=== PATIENT | male | born 1960 ===

== ENCOUNTER 2021-05-07 09:55 | Inpatient (IN) | payer MEDICARE, MEDICAID ==
[~2021-05-07] VITALS: Ht 170.2 cm; Wt 118.0 kg
[~2021-05-07 09:55] MED LIST: AMLO-211 PO; ASORBIC ACID PO; ASPIRIN; ATOR-2 PO; CARV6.2512 PO; CLOP75TA PO; FENO145T32 PO; FERR324T9 PO; FOLI0.4T5 PO; FOLI0.8T22 PO; GABA300C PO; GABA600T7 PO; INSU100I13 SQ-INSULIN; INSU100V11 SQ; INSU100V8 SQ; METO200T47 PO; MULTVITAMIN PO; OMEGA; PIOG30TA23 PO; QUET50TA3 PO; RANITIDINE PO; SERT100T32 PO; SEVE800T7 PO; SEVE800T8 PO; VICTOZA SC
--- NOTE | 2021-05-07 10:21 | NUR ---
Transfer from [facility] for continued eval of nstemi/pna/need for hd today (m/w/f) Chest pain with radiation to left arm/left leg. Started at rest last night at 2300 pna treated with rocephin/azithromycin On arrival reports left lef numb/weak since 2300. with eval left leg numb and moderately weak-erp to bedside- to order Ct head Placed on conveyor monitor/ecg obtained
--- NOTE | 2021-05-07 10:28 | NUR ---
to ct scan
--- NOTE | 2021-05-07 10:40 | NUR ---
lab at bedside
--- NOTE | 2021-05-07 10:58 | NUR ---
left arm still slightly numb, left leg now with full strength/no numbness-erp made aware
[2021-05-07 11:03] LABS: BASOPHILS % (AUTO) 1 % (0-1); EOSINOPHILS % (AUTO) 5 % (1-7); LYMPHOCYTES % (AUTO) 24 % (22-44); MEAN CORPUSCULAR HEMOGLOBIN 30.6 pg (27.5-34.5); MEAN CORPUSCULAR HGB CONC 33.2 g/dL (33.2-36.2); MEAN PLATELET VOLUME 9.1 fL (7.4-10.4); MONOCYTES % (AUTO) 8 % (2-9); NEUTROPHILS % (AUTO) 62 % (42-75); PLATELET COUNT 220 x10^3/uL (130-400); RED BLOOD COUNT 3.63 x10^6/uL (4.38-5.82); RED CELL DISTRIBUTION WIDTH 16.5 % (9.4-14.8)
--- NOTE | 2021-05-07 11:05 | NUR ---
Troponin at [facility] 0.67 with recheck increased to 0.68. Was given 324mg of asa at 2200 05/06/21 Patient was given 2gm of rocephin (0111am today) and 500mg of azithromycin (0137am today) with NO prior blood cultures
[2021-05-07 11:09] LABS: ALBUMIN 3.2 g/dL (3.4-5.0); ANION GAP 11 mmol/L (5-15); CHLORIDE 98 mmol/L (98-107); CREATININE 7.32 mg/dL (0.7-1.3)
[2021-05-07 11:14] LABS: TROPONIN I 0.589 ng/mL (0.000-0.045)
[2021-05-07] MEDS ORDERED: ranitidine PO (11:15)
--- NOTE | 2021-05-07 11:16 | NUR ---
lab called to convey troponin of 0.589. ERP made aware. ERP considering orders ERP asked for asa (last dose yesterday)
[2021-05-07] MEDS ORDERED: INSU100V8 SQ (11:23)
[2021-05-07] MEDS ORDERED: ASPIRIN 81 MG TABLET CHEW ONE (11:27)
[2021-05-07] MEDS ORDERED: ASPIRIN 81 MG TABLET CHEW PO ONE (11:30)
[2021-05-07] MEDS ORDERED: ATOR-2 PO (12:06)
[2021-05-07] MEDS ORDERED: CALC667C PO (12:06)
[2021-05-07] MEDS ORDERED: ASPI-963 PO (12:06)
[2021-05-07] MEDS ORDERED: FURO-93 PO (12:06)
[2021-05-07] MEDS ORDERED: QUET50TA5 PO (12:06)
[2021-05-07] MEDS ORDERED: CHOL10003 PO (12:07)
--- NOTE | 2021-05-07 12:48 | NUR ---
with reassessment patient without worsenig neurological symptoms nor cardic/resp symptoms updated on estimated poc (admit) Food ordered/hospital bed ordered
--- NOTE | 2021-05-07 12:52 | NUR ---
REPORT FROM PER, ASSUME CARE OF PT AT THIS TIME.
--- NOTE | 2021-05-07 13:04 | NUR ---
report to monico de jesus
--- NOTE | 2021-05-07 13:11 | NUR ---
[facility] IN ASSESSING PT. ED DIET TRAY PROVIDED.
[2021-05-07] MEDS ORDERED: ONDANSETRON ODT 4 MG PO PRN (13:30)
[2021-05-07] MEDS ORDERED: morphine SULFATE 10 MG/ML, 1ML IVPush PRN (13:30)
[2021-05-07] MEDS ORDERED: NITROGLYCERIN 0.4 MG BOTTLE (25 TABS) SL PRN (13:30)
[2021-05-07] MEDS ORDERED: ONDANSETRON 2MG/ML, 2ML IVPush PRN (13:30)
[2021-05-07] MEDS ORDERED: ACETAMINOPHEN 325 MG TABLET PO PRN (13:30)
[2021-05-07 14:02] LABS: CALCIUM 9.5 mg/dL (8.5-10.1)
--- NOTE | 2021-05-07 14:39 | NUR ---
REPORT TO FRANTZ SON READY FOR TRANSPORT AT THIS TIME.
[2021-05-07] MEDS: GABAPENTIN 300 MG CAPSULE PO SCH ×2 (16:15→19:51)
[2021-05-07] MEDS: CALCIUM ACETATE 667 MG CAPSULE PO SCH ×2 (16:15→19:51)
[2021-05-07] MEDS: LACTOBACILLUS CHEW TABLET PO SCH ×2 (16:16→19:51)
[2021-05-07] MEDS: HEPARIN 5,000 UNITS/ML, 1ML SQ SCH (16:16)
[2021-05-07] MEDS: INSULIN GLARGINE 100 UNITS/ML, PEN SQ-INSULIN SCH (16:16)
[2021-05-07] MEDS: FERROUS SULFATE 325 MG TABLET PO SCH (16:16)
[2021-05-07] MEDS: SEVELAMER CARBONATE 800MG TAB PO SCH (17:12)
[2021-05-07] MEDS: INSULIN LISPRO 100 UNITS/ML, PEN SQ-INSULIN SCH ×2 (17:13→20:04)
[2021-05-07] MEDS: CARVEDILOL 12.5 MG TABLET PO SCH (17:13)
[2021-05-07 18:45] VITALS: BP 159/85
[2021-05-07 19:46] VITALS: BP 155/87
[2021-05-07] MEDS: ATORVASTATIN 20 MG TABLET PO SCH (19:50)
[2021-05-07] MEDS: FAMOTIDINE 20 MG TABLET PO SCH (19:51)
[2021-05-07] MEDS: QUETIAPINE 25MG TABLET PO SCH (19:51)
[2021-05-08 03:50] VITALS: BP 164/94
[2021-05-08] MEDS: HEPARIN 5,000 UNITS/ML, 1ML SQ SCH ×3 (04:21→15:28)
[2021-05-08 04:53] LABS: BASOPHILS % (AUTO) 1 % (0-1); EOSINOPHILS % (AUTO) 5 % (1-7); LYMPHOCYTES % (AUTO) 22 % (22-44); MEAN CORPUSCULAR HEMOGLOBIN 31.1 pg (27.5-34.5); MEAN CORPUSCULAR HGB CONC 33.8 g/dL (33.2-36.2); MEAN PLATELET VOLUME 8.9 fL (7.4-10.4); MONOCYTES % (AUTO) 9 % (2-9); NEUTROPHILS % (AUTO) 63 % (42-75); PLATELET COUNT 213 x10^3/uL (130-400); RED BLOOD COUNT 3.39 x10^6/uL (4.38-5.82); RED CELL DISTRIBUTION WIDTH 16.6 % (9.4-14.8)
[2021-05-08 05:04] LABS: CHLORIDE 101 mmol/L (98-107)
[2021-05-08 05:09] LABS: ANION GAP 7 mmol/L (5-15); CALCIUM 8.7 mg/dL (8.5-10.1); CREATININE 4.94 mg/dL (0.7-1.3)
[2021-05-08 05:30] VITALS: BP 151/89
[2021-05-08] MEDS: CARVEDILOL 12.5 MG TABLET PO SCH ×2 (05:32→17:03)
[2021-05-08 07:04] VITALS: BP 117/61
[2021-05-08] MEDS: INSULIN LISPRO 100 UNITS/ML, PEN SQ-INSULIN SCH ×4 (07:28→21:23)
[2021-05-08] MEDS: FAMOTIDINE 20 MG TABLET PO SCH ×2 (07:49→21:22)
[2021-05-08] MEDS: MULTIVITAMIN 1 TABLET PO SCH (07:49)
[2021-05-08] MEDS: ASPIRIN 81 MG TABLET EC PO SCH (07:49)
[2021-05-08] MEDS: FUROSEMIDE 20 MG TABLET PO SCH (07:49)
[2021-05-08] MEDS: FENOFIBRATE 145 MG TABLET PO SCH (07:49)
[2021-05-08] MEDS: FOLIC ACID 1 MG TABLET PO SCH (07:49)
[2021-05-08] MEDS: ASCORBIC ACID 500 MG TABLET PO SCH (07:49)
[2021-05-08] MEDS: SEVELAMER CARBONATE 800MG TAB PO SCH ×3 (07:49→15:28)
[2021-05-08] MEDS: CLOPIDOGREL 75 MG TABLET PO SCH (07:49)
[2021-05-08] MEDS: GABAPENTIN 300 MG CAPSULE PO SCH ×3 (07:50→21:22)
[2021-05-08] MEDS: CHOLECALCIFEROL 5,000u TAB PO SCH (07:50)
[2021-05-08] MEDS: LACTOBACILLUS CHEW TABLET PO SCH ×3 (07:50→21:22)
[2021-05-08] MEDS: SERTRALINE 100MG TABLET PO SCH (07:50)
[2021-05-08] MEDS: CALCIUM ACETATE 667 MG CAPSULE PO SCH ×3 (07:50→21:22)
[2021-05-08] MEDS: INSULIN GLARGINE 100 UNITS/ML, PEN SQ-INSULIN SCH (07:55)
[2021-05-08 13:47] VITALS: BP 141/81
[2021-05-08 17:01] LABS: TROPONIN I 0.552 ng/mL (0.000-0.045)
[2021-05-08 17:02] VITALS: BP 131/77
[2021-05-08 21:09] VITALS: BP 137/77
[2021-05-08] MEDS: QUETIAPINE 25MG TABLET PO SCH (21:22)
[2021-05-08] MEDS: ATORVASTATIN 20 MG TABLET PO SCH (21:22)
[2021-05-09] MEDS: HEPARIN 5,000 UNITS/ML, 1ML SQ SCH ×3 (00:06→15:25)
[2021-05-09 00:11] VITALS: BP 114/71
[2021-05-09 04:52] LABS: BASOPHILS % (AUTO) 1 % (0-1); EOSINOPHILS % (AUTO) 6 % (1-7); LYMPHOCYTES % (AUTO) 29 % (22-44); MEAN CORPUSCULAR HEMOGLOBIN 31.2 pg (27.5-34.5); MEAN CORPUSCULAR HGB CONC 33.6 g/dL (33.2-36.2); MEAN PLATELET VOLUME 9.3 fL (7.4-10.4); MONOCYTES % (AUTO) 10 % (2-9); NEUTROPHILS % (AUTO) 55 % (42-75); PLATELET COUNT 206 x10^3/uL (130-400); RED BLOOD COUNT 3.26 x10^6/uL (4.38-5.82); RED CELL DISTRIBUTION WIDTH 16.9 % (9.4-14.8)
[2021-05-09 05:05] LABS: ANION GAP 8 mmol/L (5-15); CALCIUM 8.4 mg/dL (8.5-10.1); CHLORIDE 97 mmol/L (98-107)
[2021-05-09 05:06] LABS: CREATININE 6.61 mg/dL (0.7-1.3)
[2021-05-09] MEDS: CARVEDILOL 12.5 MG TABLET PO SCH ×2 (05:33→21:29)
[2021-05-09 06:49] VITALS: BP 111/66
[2021-05-09] MEDS: INSULIN LISPRO 100 UNITS/ML, PEN SQ-INSULIN SCH ×4 (07:04→21:00)
[2021-05-09] MEDS: FENOFIBRATE 145 MG TABLET PO SCH (07:44)
[2021-05-09] MEDS: FOLIC ACID 1 MG TABLET PO SCH (07:44)
[2021-05-09] MEDS: CALCIUM ACETATE 667 MG CAPSULE PO SCH ×3 (07:44→21:28)
[2021-05-09] MEDS: ASPIRIN 81 MG TABLET EC PO SCH (07:44)
[2021-05-09] MEDS: ASCORBIC ACID 500 MG TABLET PO SCH (07:44)
[2021-05-09] MEDS: LACTOBACILLUS CHEW TABLET PO SCH ×3 (07:44→21:26)
[2021-05-09] MEDS: SERTRALINE 100MG TABLET PO SCH (07:44)
[2021-05-09] MEDS: GABAPENTIN 300 MG CAPSULE PO SCH ×3 (07:45→21:29)
[2021-05-09] MEDS: SEVELAMER CARBONATE 800MG TAB PO SCH ×3 (07:45→16:05)
[2021-05-09] MEDS: CHOLECALCIFEROL 5,000u TAB PO SCH (07:45)
[2021-05-09] MEDS: FAMOTIDINE 20 MG TABLET PO SCH (07:45)
[2021-05-09] MEDS: MULTIVITAMIN 1 TABLET PO SCH (07:45)
[2021-05-09] MEDS: FUROSEMIDE 20 MG TABLET PO SCH (07:45)
[2021-05-09] MEDS: CLOPIDOGREL 75 MG TABLET PO SCH (07:45)
[2021-05-09] MEDS: INSULIN GLARGINE 100 UNITS/ML, PEN SQ-INSULIN SCH (07:46)
[2021-05-09 12:21] VITALS: BP 126/76
[2021-05-09] MEDS: FERROUS SULFATE 325 MG TABLET PO SCH (15:16)
[2021-05-09 19:45] VITALS: BP 145/79
[2021-05-09] MEDS: ATORVASTATIN 20 MG TABLET PO SCH (21:26)
[2021-05-09] MEDS: QUETIAPINE 25MG TABLET PO SCH (21:28)
[2021-05-10] MEDS: HEPARIN 5,000 UNITS/ML, 1ML SQ SCH ×4 (00:25→23:47)
[2021-05-10 00:31] VITALS: BP 137/79
[2021-05-10 05:11] VITALS: BP 122/72
[2021-05-10] MEDS: CARVEDILOL 12.5 MG TABLET PO SCH ×2 (05:12→18:11)
[2021-05-10 05:22] LABS: BASOPHILS % (AUTO) 1 % (0-1); EOSINOPHILS % (AUTO) 6 % (1-7); LYMPHOCYTES % (AUTO) 28 % (22-44); MEAN CORPUSCULAR HEMOGLOBIN 31.4 pg (27.5-34.5); MEAN PLATELET VOLUME 9.4 fL (7.4-10.4); MONOCYTES % (AUTO) 9 % (2-9); NEUTROPHILS % (AUTO) 56 % (42-75); PLATELET COUNT 188 x10^3/uL (130-400); RED BLOOD COUNT 3.19 x10^6/uL (4.38-5.82); RED CELL DISTRIBUTION WIDTH 16.9 % (9.4-14.8)
[2021-05-10 05:30] LABS: CALCIUM 8.2 mg/dL (8.5-10.1); CHLORIDE 97 mmol/L (98-107)
[2021-05-10 05:31] LABS: ANION GAP 8 mmol/L (5-15); CREATININE 5.75 mg/dL (0.7-1.3)
[2021-05-10 07:40] VITALS: BP 124/75
[2021-05-10] MEDS ORDERED: REGADENOSON 0.4 MG/5 ML SYRINGE ONE (07:54)
[2021-05-10] MEDS: INSULIN LISPRO 100 UNITS/ML, PEN SQ-INSULIN SCH ×4 (08:31→20:33)
[2021-05-10] MEDS: GABAPENTIN 300 MG CAPSULE PO SCH ×3 (08:32→20:24)
[2021-05-10] MEDS: FENOFIBRATE 145 MG TABLET PO SCH (08:32)
[2021-05-10] MEDS: SERTRALINE 100MG TABLET PO SCH (08:32)
[2021-05-10] MEDS: CALCIUM ACETATE 667 MG CAPSULE PO SCH ×3 (08:32→20:24)
[2021-05-10] MEDS: ASCORBIC ACID 500 MG TABLET PO SCH (08:32)
[2021-05-10] MEDS: CHOLECALCIFEROL 5,000u TAB PO SCH (08:32)
[2021-05-10] MEDS: CLOPIDOGREL 75 MG TABLET PO SCH (08:32)
[2021-05-10] MEDS: FAMOTIDINE 20 MG TABLET PO SCH (08:32)
[2021-05-10] MEDS: SEVELAMER CARBONATE 800MG TAB PO SCH ×3 (08:33→18:10)
[2021-05-10] MEDS: FOLIC ACID 1 MG TABLET PO SCH (08:33)
[2021-05-10] MEDS: LACTOBACILLUS CHEW TABLET PO SCH ×3 (08:33→20:24)
[2021-05-10] MEDS: FUROSEMIDE 20 MG TABLET PO SCH (08:33)
[2021-05-10] MEDS: MULTIVITAMIN 1 TABLET PO SCH (08:33)
[2021-05-10] MEDS: ASPIRIN 81 MG TABLET EC PO SCH (08:33)
[2021-05-10] MEDS: INSULIN GLARGINE 100 UNITS/ML, PEN SQ-INSULIN SCH (08:42)
[2021-05-10 12:58] VITALS: BP 143/80
[2021-05-10 19:13] VITALS: BP 151/84
[2021-05-10] MEDS: QUETIAPINE 25MG TABLET PO SCH (20:24)
[2021-05-10] MEDS: ATORVASTATIN 20 MG TABLET PO SCH (20:24)
[2021-05-11 01:15] VITALS: BP 157/80
[2021-05-11 05:17] LABS: ALBUMIN 3.2 g/dL (3.4-5.0); ANION GAP 8 mmol/L (5-15); CALCIUM 8.4 mg/dL (8.5-10.1); CHLORIDE 96 mmol/L (98-107)
[2021-05-11 05:18] LABS: BASOPHILS % (AUTO) 1 % (0-1); EOSINOPHILS % (AUTO) 5 % (1-7); LYMPHOCYTES % (AUTO) 26 % (22-44); MEAN CORPUSCULAR HEMOGLOBIN 31.4 pg (27.5-34.5); MEAN CORPUSCULAR HGB CONC 33.6 g/dL (33.2-36.2); MEAN PLATELET VOLUME 9.6 fL (7.4-10.4); MONOCYTES % (AUTO) 9 % (2-9); NEUTROPHILS % (AUTO) 59 % (42-75); PLATELET COUNT 197 x10^3/uL (130-400); RED BLOOD COUNT 3.23 x10^6/uL (4.38-5.82); RED CELL DISTRIBUTION WIDTH 16.6 % (9.4-14.8)
[2021-05-11] MEDS: CARVEDILOL 12.5 MG TABLET PO SCH ×2 (05:20→17:44)
[2021-05-11 05:21] LABS: ALANINE AMINOTRANSFERASE 18 U/L (12-78); ALKALINE PHOSPHATASE 111 U/L (45-117); BILIRUBIN,TOTAL 0.3 mg/dL (0.2-1.0); CREATININE 7.37 mg/dL (0.7-1.3); TOTAL PROTEIN 7.2 g/dL (6.4-8.2)
[2021-05-11 06:59] VITALS: BP 128/73
[2021-05-11] MEDS: GABAPENTIN 300 MG CAPSULE PO SCH ×3 (09:41→20:10)
[2021-05-11] MEDS: CLOPIDOGREL 75 MG TABLET PO SCH (09:41)
[2021-05-11] MEDS: CHOLECALCIFEROL 5,000u TAB PO SCH (09:41)
[2021-05-11] MEDS: ASCORBIC ACID 500 MG TABLET PO SCH (09:41)
[2021-05-11] MEDS: ASPIRIN 81 MG TABLET EC PO SCH (09:41)
[2021-05-11] MEDS: MULTIVITAMIN 1 TABLET PO SCH (09:41)
[2021-05-11] MEDS: CALCIUM ACETATE 667 MG CAPSULE PO SCH ×3 (09:41→20:10)
[2021-05-11] MEDS: FENOFIBRATE 145 MG TABLET PO SCH (09:41)
[2021-05-11] MEDS: SERTRALINE 100MG TABLET PO SCH (09:41)
[2021-05-11] MEDS: FUROSEMIDE 20 MG TABLET PO SCH (09:42)
[2021-05-11] MEDS: INSULIN LISPRO 100 UNITS/ML, PEN SQ-INSULIN SCH ×4 (09:42→20:21)
[2021-05-11] MEDS: FOLIC ACID 1 MG TABLET PO SCH (09:42)
[2021-05-11] MEDS: SEVELAMER CARBONATE 800MG TAB PO SCH ×3 (09:42→17:44)
[2021-05-11] MEDS: LACTOBACILLUS CHEW TABLET PO SCH ×3 (09:42→20:10)
[2021-05-11] MEDS: FAMOTIDINE 20 MG TABLET PO SCH (09:42)
[2021-05-11] MEDS: HEPARIN 5,000 UNITS/ML, 1ML SQ SCH ×3 (09:42→23:49)
[2021-05-11] MEDS: INSULIN GLARGINE 100 UNITS/ML, PEN SQ-INSULIN SCH (09:44)
[2021-05-11 13:50] VITALS: BP 147/88
[2021-05-11] MEDS: FERROUS SULFATE 325 MG TABLET PO SCH (17:46)
[2021-05-11 19:30] VITALS: BP 156/92
[2021-05-11] MEDS: QUETIAPINE 25MG TABLET PO SCH (20:10)
[2021-05-11] MEDS: ATORVASTATIN 20 MG TABLET PO SCH (20:10)
[2021-05-12 01:11] VITALS: BP 120/74
[2021-05-12 04:57] LABS: BASOPHILS % (AUTO) 1 % (0-1); EOSINOPHILS % (AUTO) 4 % (1-7); LYMPHOCYTES % (AUTO) 20 % (22-44); MEAN CORPUSCULAR HEMOGLOBIN 31.2 pg (27.5-34.5); MEAN CORPUSCULAR HGB CONC 33.4 g/dL (33.2-36.2); MEAN PLATELET VOLUME 9.7 fL (7.4-10.4); MONOCYTES % (AUTO) 8 % (2-9); NEUTROPHILS % (AUTO) 67 % (42-75); PLATELET COUNT 191 x10^3/uL (130-400); RED BLOOD COUNT 3.16 x10^6/uL (4.38-5.82); RED CELL DISTRIBUTION WIDTH 17.1 % (9.4-14.8)
[2021-05-12 05:11] LABS: CHLORIDE 95 mmol/L (98-107)
[2021-05-12 05:20] LABS: ALANINE AMINOTRANSFERASE 21 U/L (12-78); ALBUMIN 3.3 g/dL (3.4-5.0); ALKALINE PHOSPHATASE 97 U/L (45-117); ANION GAP 10 mmol/L (5-15); BILIRUBIN,TOTAL 0.3 mg/dL (0.2-1.0); CALCIUM 8.6 mg/dL (8.5-10.1); CREATININE 8.89 mg/dL (0.7-1.3); TOTAL PROTEIN 7.4 g/dL (6.4-8.2)
[2021-05-12] MEDS: CARVEDILOL 12.5 MG TABLET PO SCH ×2 (05:32→17:21)
[2021-05-12] MEDS: INSULIN LISPRO 100 UNITS/ML, PEN SQ-INSULIN SCH ×4 (07:00→21:00)
[2021-05-12 07:03] VITALS: BP 136/86
[2021-05-12] MEDS: SEVELAMER CARBONATE 800MG TAB PO SCH ×3 (08:00→17:21)
[2021-05-12] MEDS: MULTIVITAMIN 1 TABLET PO SCH (08:25)
[2021-05-12] MEDS: GABAPENTIN 300 MG CAPSULE PO SCH ×2 (08:25→16:50)
[2021-05-12] MEDS: FUROSEMIDE 20 MG TABLET PO SCH (08:25)
[2021-05-12] MEDS: CHOLECALCIFEROL 5,000u TAB PO SCH (08:25)
[2021-05-12] MEDS: ASPIRIN 81 MG TABLET EC PO SCH (08:25)
[2021-05-12] MEDS: FENOFIBRATE 145 MG TABLET PO SCH (08:25)
[2021-05-12] MEDS: FOLIC ACID 1 MG TABLET PO SCH (08:25)
[2021-05-12] MEDS: ASCORBIC ACID 500 MG TABLET PO SCH (08:25)
[2021-05-12] MEDS: SERTRALINE 100MG TABLET PO SCH (08:25)
[2021-05-12] MEDS: LACTOBACILLUS CHEW TABLET PO SCH ×2 (08:26→16:50)
[2021-05-12] MEDS: CALCIUM ACETATE 667 MG CAPSULE PO SCH ×2 (08:26→16:50)
[2021-05-12] MEDS: FAMOTIDINE 20 MG TABLET PO SCH (08:26)
[2021-05-12] MEDS: HEPARIN 5,000 UNITS/ML, 1ML SQ SCH ×2 (08:26→16:50)
[2021-05-12] MEDS: CLOPIDOGREL 75 MG TABLET PO SCH (08:26)
[2021-05-12] MEDS: INSULIN GLARGINE 100 UNITS/ML, PEN SQ-INSULIN SCH (08:28)
[2021-05-12] MEDS ORDERED: MIDAZOLAM 1 MG/ML, 2ML ONE (12:41)
[2021-05-12] MEDS ORDERED: FENTANYL PF 100 MCG/2ML ONE (12:41)
[2021-05-12] MEDS ORDERED: LIDOCAINE 1%, 20ML ONE (12:42)
[2021-05-12] MEDS ORDERED: BIVALIRUDIN 250 MG ONE (12:42)
[2021-05-12 14:04] VITALS: BP 124/71
[2021-05-12 14:53] VITALS: BP 123/77
[2021-05-12 18:13] VITALS: BP 148/94
[2021-05-13 00:27] VITALS: BP 162/100
[2021-05-13] MEDS: ATORVASTATIN 20 MG TABLET PO SCH (00:58)
[2021-05-13] MEDS: LACTOBACILLUS CHEW TABLET PO SCH ×2 (00:58→08:53)
[2021-05-13] MEDS: QUETIAPINE 25MG TABLET PO SCH (00:59)
[2021-05-13] MEDS: GABAPENTIN 300 MG CAPSULE PO SCH ×2 (00:59→08:52)
[2021-05-13] MEDS: CALCIUM ACETATE 667 MG CAPSULE PO SCH ×2 (00:59→08:52)
[2021-05-13] MEDS: HEPARIN 5,000 UNITS/ML, 1ML SQ SCH ×2 (01:00→08:00)
[2021-05-13 05:07] LABS: BASOPHILS % (AUTO) 1 % (0-1); EOSINOPHILS % (AUTO) 3 % (1-7); LYMPHOCYTES % (AUTO) 26 % (22-44); MEAN CORPUSCULAR HEMOGLOBIN 31.2 pg (27.5-34.5); MEAN CORPUSCULAR HGB CONC 33.8 g/dL (33.2-36.2); MEAN PLATELET VOLUME 9.8 fL (7.4-10.4); MONOCYTES % (AUTO) 9 % (2-9); NEUTROPHILS % (AUTO) 61 % (42-75); PLATELET COUNT 186 x10^3/uL (130-400); RED BLOOD COUNT 3.14 x10^6/uL (4.38-5.82); RED CELL DISTRIBUTION WIDTH 16.9 % (9.4-14.8)
[2021-05-13 05:11] LABS: CHLORIDE 95 mmol/L (98-107)
[2021-05-13 05:22] LABS: ALANINE AMINOTRANSFERASE 30 U/L (12-78); ALBUMIN 3.3 g/dL (3.4-5.0); ALKALINE PHOSPHATASE 99 U/L (45-117); ANION GAP 11 mmol/L (5-15); BILIRUBIN,TOTAL 0.4 mg/dL (0.2-1.0); CALCIUM 8.3 mg/dL (8.5-10.1); CREATININE 7.07 mg/dL (0.7-1.3); TOTAL PROTEIN 7.6 g/dL (6.4-8.2)
[2021-05-13 05:42] VITALS: BP 143/79
[2021-05-13] MEDS: CARVEDILOL 12.5 MG TABLET PO SCH (05:43)
[2021-05-13] MEDS: INSULIN LISPRO 100 UNITS/ML, PEN SQ-INSULIN SCH ×2 (07:00→11:00)
[2021-05-13 07:08] VITALS: BP 135/72
[2021-05-13] MEDS: FAMOTIDINE 20 MG TABLET PO SCH (08:52)
[2021-05-13] MEDS: FUROSEMIDE 20 MG TABLET PO SCH (08:52)
[2021-05-13] MEDS: FENOFIBRATE 145 MG TABLET PO SCH (08:52)
[2021-05-13] MEDS: CHOLECALCIFEROL 5,000u TAB PO SCH (08:52)
[2021-05-13] MEDS: FOLIC ACID 1 MG TABLET PO SCH (08:52)
[2021-05-13] MEDS: CLOPIDOGREL 75 MG TABLET PO SCH (08:53)
[2021-05-13] MEDS: ASPIRIN 81 MG TABLET EC PO SCH (08:53)
[2021-05-13] MEDS: ASCORBIC ACID 500 MG TABLET PO SCH (08:53)
[2021-05-13] MEDS: MULTIVITAMIN 1 TABLET PO SCH (08:53)
[2021-05-13] MEDS: SEVELAMER CARBONATE 800MG TAB PO SCH ×2 (08:53→13:04)
[2021-05-13] MEDS: SERTRALINE 100MG TABLET PO SCH (08:53)
[2021-05-13] MEDS: INSULIN GLARGINE 100 UNITS/ML, PEN SQ-INSULIN SCH (08:54)
[2021-05-13] MEDS ORDERED: LOSARTAN 25MG TABLET PO SCH (10:00)
[2021-05-13] MEDS ORDERED: LOSA25TA25 PO (12:40)
[2021-05-13 12:58] VITALS: BP 152/94
== END 2021-05-13 14:10 | disposition home or self-care (01) | DRG 246 ==
LOC: ED 11:07 → EDIP 13:13 → 5SO 14:54 → DCLOUNGE 05-13 14:00
PROVIDERS: ADMIT Internal Medicine; ATTEND Family Medicine
PROC: 027034Z Dilation of Coronary Artery, One Artery with Drug-eluting Intraluminal Device, Percutaneous Approach (ICD-10-PCS; principal; 2021-05-12)
PROC: 4A023N7 Measurement of Cardiac Sampling and Pressure, Left Heart, Percutaneous Approach (ICD-10-PCS; 2021-05-12)
PROC: B2121ZZ Fluoroscopy of Single Coronary Artery Bypass Graft using Low Osmolar Contrast (ICD-10-PCS; 2021-05-12)
PROC: B2181ZZ Fluoroscopy of Left Internal Mammary Bypass Graft using Low Osmolar Contrast (ICD-10-PCS; 2021-05-12)
PROC: B2111ZZ Fluoroscopy of Multiple Coronary Arteries using Low Osmolar Contrast (ICD-10-PCS; 2021-05-12)
PROC: B2151ZZ Fluoroscopy of Left Heart using Low Osmolar Contrast (ICD-10-PCS; 2021-05-12)
PROC: 5A1D70Z Performance of Urinary Filtration, Intermittent, Less than 6 Hours Per Day (ICD-10-PCS; 2021-05-12)
DX: I21.4 Non-ST elevation (NSTEMI) myocardial infarction (principal); N18.6 End stage renal disease; I50.21 Acute systolic (congestive) heart failure; J18.9 Pneumonia, unspecified organism; I13.2 Hypertensive heart and chronic kidney disease with heart failure and with stage 5 chronic kidney disease, or end stage renal disease; I42.9 Cardiomyopathy, unspecified; Z68.41 Body mass index [BMI] 40.0-44.9, adult; D63.1 Anemia in chronic kidney disease; E11.22 Type 2 diabetes mellitus with diabetic chronic kidney disease; E66.01 Morbid (severe) obesity due to excess calories; E78.00 Pure hypercholesterolemia, unspecified; E78.5 Hyperlipidemia, unspecified; E83.41 Hypermagnesemia; I25.110 Atherosclerotic heart disease of native coronary artery with unstable angina pectoris; F17.210 Nicotine dependence, cigarettes, uncomplicated; F32.9 Major depressive disorder, single episode, unspecified; G47.33 Obstructive sleep apnea (adult) (pediatric); G89.29 Other chronic pain; I25.2 Old myocardial infarction; Z89.511 Acquired absence of right leg below knee; Z99.2 Dependence on renal dialysis; Z79.899 Other long term (current) drug therapy
CPT/HCPCS: 36415; 70450; 71045; 78452; 80048; 80053; 80069; 82040; 82306; 82310; 82728; 82962; 83036; 83540; 83550; 83735; 83970; 84100; 84145; 84484; 85025; 86704; 86706; 87340; 90935; 93005; 93017; 93455; 99156; 99157; 99285; C1760; C1769; C1894; C8929; C9600; G0378; J0583; J1644; J2250; J2785; J3010; Q9957; A9502; C1874; C1887; J1815; Q9967